=== PATIENT | female | born 1995 | race Caucasian/White ===

== ENCOUNTER → 2018-08-04 | Outpatient (CLI) | payer OTHER ==
--- NOTE | 2018-08-04 12:59 | Diagnostic Imaging Report ---
EXAMINATION: Magnetic resonance imaging of the left wrist without contrast. DATE: August 04, 2018. COMPARISON: None. HISTORY: 22-year-old female, injury 7 weeks ago. Persistent pain and popping. TECHNIQUE: Magnetic Resonance Imaging sequences were performed of the wrist without contrast. FINDINGS: TRIANGULAR FIBROCARTILAGE COMPLEX: The triangular fibrocartilage disc, dorsal radioulnar ligament, volar radioulnar ligament, ulnolunate ligament, ulnotriquetral ligament, extensor carpi ulnaris tendon and sheath, and meniscal homologue are grossly intact. INTRINSIC LIGAMENTS: The scapholunate and lunotriquetral ligaments are grossly intact. JOINTS: The radiocarpal, intercarpal, and distal radioulnar joints are intact. There is no joint effusion. CARPAL TUNNEL: The flexor retinaculum is unremarkable. The flexor digitorum superficialis and profundus are intact. The median nerve is unremarkable. FLEXOR TENDONS: The flexor carpi ulnaris, flexor pollicis longus, and carpi radialis are intact. EXTENSOR TENDONS: Radial side extensor tendons are intact including: extensor pollicis longus, extensor carpi radialis brevis, extensor carpi radialis longus, extensor pollicis brevis, and abductor pollicis longus. The extensor carpi ulnaris, extensor digitorum, extensor digiti minimi, and extensor indicis tendons are intact. BONE: The bones all have normal configuration. The bone marrow signal is within normal limits. Specifically, negative for fracture, osteomyelitis, osteonecrosis, or marrow replacing process. BURSAE AND SOFT TISSUES: The bursae and soft tissues surrounding the wrist are within normal limits. IMPRESSION: Unremarkable MRI of the left wrist. Dictated by: Dictated on workstation # [id number]
== END ==
LOC: RAD 08:37
PROVIDERS: ATTEND Nurse Practitioner
DX: M25.532 Pain in left wrist (principal); M25.522 Pain in left elbow; W09.8XXD Fall on or from other playground equipment, subsequent encounter
CPT/HCPCS: 73221

== ENCOUNTER → 2018-12-01 | Outpatient (CLI) | payer OTHER ==
--- NOTE | 2018-12-01 12:40 | Diagnostic Imaging Report ---
INDICATION: Foot pain COMPARISON: None. FINDINGS: 3 views of the left foot demonstrate no acute fracture or dislocation. There are no focal osseous lesions. There is no soft tissue swelling. Joint spaces are well maintained. No radiopaque foreign bodies are seen. IMPRESSION: No acute fractures or dislocations of the left foot. Dictated by: Dictated on workstation # [id number]
--- NOTE | 2018-12-01 12:51 | Diagnostic Imaging Report ---
INDICATION: Pain. COMPARISON: None. FINDINGS: Three views of the sacrum and coccyx were obtained and show no fractures, dislocations, or other acute bony abnormalities. Joint spaces are well maintained throughout. The soft tissues appear unremarkable. No radiopaque foreign bodies are identified. IMPRESSION: Unremarkable radiographic exam of the sacrum and coccyx. Dictated by: Dictated on workstation # [id number]
== END ==
LOC: RAD 10:44
PROVIDERS: ATTEND Nurse Practitioner Family
DX: M53.3 Sacrococcygeal disorders, not elsewhere classified (principal); M79.672 Pain in left foot
CPT/HCPCS: 72220; 73630

== ENCOUNTER → 2019-01-05 | Outpatient (CLI) | payer OTHER ==
--- NOTE | 2019-01-05 10:35 | Diagnostic Imaging Report ---
PROCEDURE: US Non-ob pelvis comp/trans. INDICATION: Pelvic pain TECHNIQUE: Multiple real time valencia scale sonographic images were obtained of the pelvis transabdominally and transvaginally. CORRELATION STUDY: None FINDINGS: UTERUS: 6.7 x 3.7 x 3.0 cm. The uterus appears unremarkable. ENDOMETRIUM: 5 mm. The endometrium appearing unremarkable. RIGHT OVARY: 2.3 x 1.6 x 1.9 cm Small cyst, 11 mm maximum size, likely physiologic. Normal blood flow. LEFT OVARY: 1.9 x 1.8 x 1.4 cm The left ovary has an unremarkable appearance. No concerning mass. Normal blood flow. No significant free pelvic fluid. IMPRESSION: 1. Unremarkable appearing pelvic ultrasound examination. Dictated by: Dictated on workstation # [id number]
== END ==
LOC: RAD 09:41
PROVIDERS: ATTEND Obstetrics & Gynecology
DX: R10.2 Pelvic and perineal pain (principal)
CPT/HCPCS: 76830; 76856

== ENCOUNTER → 2019-12-01 | Outpatient (CLI) | payer OTHER ==
--- NOTE | 2019-12-01 17:06 | Diagnostic Imaging Report ---
PROCEDURE: MR imaging of the brain without contrast. TECHNIQUE: Multiplanar, multisequence MR imaging of the brain was performed without contrast. Indication: Migraine headaches. Occipital pain. Comparison: None available. Findings: There is no diffusion restriction present to suggest acute ischemia. There is no MR evidence of intracranial hemorrhage. There is no intracranial mass effect demonstrated. There is no abnormal extra-axial collection. Bautista and white matter signal characteristics appear within normal limits. The ventricular system is appropriate in size and configuration. The basilar cisterns are patent. Posterior fossa is unremarkable. There is normal alignment of the craniocervical junction. Pituitary gland is unremarkable. The pineal region appears normal. No orbital abnormality evident on this nondedicated exam. The paranasal sinuses and mastoid air cells are clear. Expected arterial and dural venous sinus flow voids are preserved. Impression: No MR evidence of an acute intracranial abnormality. There is no evidence of ischemia, hemorrhage, parenchymal signal abnormality, intracranial mass effect, or hydrocephalus. Dictated by: Dictated on workstation # [id number]
== END ==
LOC: RAD 12:30
PROVIDERS: ATTEND Family Medicine
DX: G43.909 Migraine, unspecified, not intractable, without status migrainosus (principal)
CPT/HCPCS: 70551